=== PATIENT | male | born 1990 | race Caucasian/White ===

== ENCOUNTER 2024-06-14 21:25 | Emergency (ER) | payer SELFPAY ==
[~2024-06-14] VITALS: Ht 170.2 cm; Wt 131.0 kg
[2024-06-14 21:28] VITALS: O2SAT 98
[2024-06-14 21:30] VITALS: BP 154/70; PULSE 73; RESP 16; TEMP 98.5; O2SAT 100
[2024-06-14] MEDS ORDERED: DIPHENHYDRAMINE 25MG CAPSULE PO ONE (21:45)
[2024-06-14] MEDS ORDERED: KETOROLAC 30MG/ML VIAL IM ONE (21:45)
[2024-06-14] MEDS: PROCHLORPERAZINE MALEATE 10MG TABLET PO ONE (21:45)
[2024-06-14] MEDS: KETOROLAC 30MG/ML VIAL IM NR (23:30)
[2024-06-14] MEDS: DIPHENHYDRAMINE 25MG CAPSULE PO NR (23:30)
[2024-06-15] MEDS ORDERED: IBUP-2029 MT (00:25)
== END 2024-06-15 00:33 | disposition home or self-care (01) ==
LOC: ER 21:25
DX: G43.909 Migraine, unspecified, not intractable, without status migrainosus (principal)
CPT/HCPCS: 99283; 96372; Q0163; Q0164; J1885